=== PATIENT | female | born 1985 | race Caucasian/White ===

== ENCOUNTER → 2018-01-14 | Outpatient (CLI) | payer BC | LOC: FIMAGING 16:27 | PROVIDERS: ATTEND Midwife | DX: R10.9 Unspecified abdominal pain (principal); Z97.5 Presence of (intrauterine) contraceptive device ==

== ENCOUNTER → 2018-01-25 | Outpatient (CLI) | payer BC ==
[~2018-01-25] MED LIST: GADOBUTROL 10 ML VIAL IVP ONE
== END ==
LOC: FIMAGING 15:26
PROVIDERS: ATTEND Midwife
DX: N83.202 Unspecified ovarian cyst, left side (principal)
CPT/HCPCS: A9585

== ENCOUNTER → 2018-07-29 | Outpatient (CLI) | payer BC | LOC: FIMAGING 15:58 | PROVIDERS: ATTEND Obstetrics & Gynecology | DX: D27.1 Benign neoplasm of left ovary (principal); Z97.5 Presence of (intrauterine) contraceptive device ==